=== PATIENT | male | born 1955 | race Two or more races ===

== ENCOUNTER 2018-01-11 17:31 | Emergency (ER) | payer OTHER ==
[2018-01-11 17:40] VITALS: BP 119/77; PULSE 61; TEMP 98.1; BMI 26.3
--- NOTE | 2018-01-11 17:54 | PDOC ---
History of Present Illness <Taylor Sullivan - Last Filed: 01/11/18 19:51> - General History Source: Patient - History of Present Illness Initial Comments: 01/11/18 17:54 The patient is a 62 year old Romansh speaking male with a PMH of HTN, Hypothyroidism, Prostate CA who presents to the ED c/o 2-3 week of abdominal pain. Pain is intermittent, 7/10, localized to his RUQ and has no relation to movement, breathing or eating. Denies any associated fevers/chills, nausea/ vomiting, diarrhea/constipation, dysuria, hematuria. Last BM was this morning and was normal. Patient notes he is scheduled for Prostate CA resection this coming week. NKDA Surgical: appendectomy Social: denies toxic habits PMD: Dr. Luci Carrillo M.D. <Donna Garcia - Last Filed: 01/11/18 23:46> - General Chief Complaint: Pain, Acute Stated Complaint: PAIN, ACUTE Time Seen by Provider: 01/11/18 17:44 Past History <Taylor Sullivan - Last Filed: 01/11/18 19:51> - Past Medical History Cancer: Yes (prostate) COPD: No HTN: Yes Thyroid Disease: Yes - Surgical History Appendectomy: Yes - Suicide/Smoking/Psychosocial Hx Smoking History: Never smoked <Donna Garcia - Last Filed: 01/11/18 23:46> - Past Medical History Allergies/Adverse Reactions: Allergies Allergy/AdvReac Type Severity Reaction Status Date / Time No Known Allergies Allergy Verified 01/11/18 17:37 Home Medications: Ambulatory Orders Valsartan [Diovan] 40 mg PO DAILY 05/04/17 Levothyroxine [Synthroid -] 100 mcg PO DAILY 01/11/18 Review of Systems - Review of Systems Constitutional: No: Chills, Fever HEENTM: No: Blurred Vision, Double Vision Respiratory: No: Cough, Shortness of Breath Cardiac (ROS): No: Chest Pain, Lightheadedness, Palpitations, Syncope ABD/GI: Yes: Abdominal cramping. No: Constipated, Diarrhea, Nausea, Vomiting <Donna Garcia - Last Filed: 01/11/18 23:46> *Physical Exam - Vital Signs Last Vital Signs Temp Pulse Resp BP Pulse Ox 98.1 F 61 18 119/77 98 11/03/18 17:38 01/11/18 17:38 01/11/18 17:38 01/11/18 17:38 01/11/18 17:38 <Taylor Sullivan - Last Filed: 01/11/18 19:51> - Vital Signs Last Vital Signs Temp Pulse Resp BP Pulse Ox 98.1 F 61 18 119/77 98 01/11/18 17:38 01/11/18 17:38 01/11/18 17:38 01/11/18 17:38 01/11/18 17:38 - Physical Exam General Appearance: Yes: Nourished, Appropriately Dressed HEENT: positive: Normal Voice, Hearing Grossly Normal Neck: positive: Trachea midline, Supple Respiratory/Chest: positive: Lungs Clear, Normal Breath Sounds Cardiovascular: positive: S1, S2 Vascular Pulses: Dorsalis-Pedis (R): 2+, Doralis-Pedis (L): 2+ Gastrointestinal/Abdominal: positive: Normal Bowel Sounds, Soft, Tenderness ( RLQ TTP). negative: Distended, Guarding, Rebound, Mass Male Genitalia: positive: inguinal hernia (R), other (R sided inguinal canal deficit) Musculoskeletal: negative: CVA Tenderness (R), CVA Tenderness (L) Extremity: positive: Normal Capillary Refill, Normal Inspection Integumentary: positive: Normal Color, Dry, Warm Neurologic: positive: monogram technician II-XII NML intact, Fully Oriented, Alert <Donna Garcia - Last Filed: 01/11/18 23:46> Heart Score/ECG Review - ECG Intrepretation Rhythm: Regular Rhythm - Delia Delia: Normal - P and VT Prominent R with upright T in V1 (true posterior CT): No Delta Wave(s) Present: No WPW: No - ST and T Early Repolarization: No Non Specific ST-T Wave changes: No Flattened T Waves: No Prolonged Q-T Interval: No - ECG Impressions Normal ECG: Yes Non-specific ST Elevation: No Ischemic Changes: No <Taylor Sullivan - Last Filed: 01/11/18 19:51> ED Treatment Course - LABORATORY CBC & Chemistry Diagram: 01/11/18 18:20 01/11/18 18:20 - ADDITIONAL ORDERS Additional order review: Laboratory Results 01/11/18 01/11/18 01/11/18 18:20 18:20 18:20 PT with INR INR PTT (Actin FS) Sodium 142 Potassium 4.0 Chloride 104 Carbon Dioxide 30 Anion Gap 8 BUN 14 Creatinine 0.9 Creat Clearance w eGFR > 60 Random Glucose 102 Calcium 8.4 L Total Bilirubin 0.8 AST 17 ALT 35 Alkaline Phosphatase 96 Total Protein 7.5 Albumin 3.7 Lipase 207 Blood Type O POSITIVE Antibody Screen Negative 01/11/18 18:20 PT with INR 11.60 INR 0.98 PTT (Actin FS) 30.5 Sodium Potassium Chloride Carbon Dioxide Anion Gap BUN Creatinine Creat Clearance w eGFR Random Glucose Calcium Total Bilirubin AST ALT Alkaline Phosphatase Total Protein Albumin Lipase Blood Type Antibody Screen 01/11/18 18:20 RBC 4.80 MCV 87.6 MCHC 35.7 RDW 13.6 MPV 8.9 Neutrophils % 47.6 Lymphocytes % 36.3 Monocytes % 6.2 Eosinophils % 9.6 H Basophils % 0.3 - Medications Given in the ED: ED Medications Discontinued Medications Generic Name Dose Route Start Last Admin Trade Name Freq PRN Reason Stop Dose Admin Al Hydroxide/Mg Hydroxide 30 ml 01/11/18 19:05 01/11/18 19:49 Mylanta Suspension - PO 01/11/18 19:06 1 bot ONCE ONE Administration Famotidine/Sodium Chloride 20 mg in 50 mls @ 100 mls/hr 01/11/18 19:06 19:49 Pepcid 20 Mg Premixed Ivpb - IVPB 01/11/18 19:35 100 mls/hr ONCE ONE Administration Morphine Sulfate 4 mg 01/11/18 18:26 01/11/18 19:12 Morphine Sulfate IVPUSH 01/11/18 18:27 4 mg ONCE ONE Administration Sodium Chloride 1,000 ml 01/11/18 18:00 01/11/18 18:24 Normal Saline - IV 01/11/18 18:01 1,000 ml ONCE ONE Administration <Taylor Sullivan - Last Filed: 01/11/18 19:51> - LABORATORY CBC & Chemistry Diagram: 01/11/18 18:20 01/11/18 18:20 <Donna Garcia - Last Filed: 01/11/18 23:46> Medical Decision Making - Medical Decision Making 01/11/18 18:26 62 year old male c/o 4 week h/o intermittent RUQ pain. Exquisitely tender on PE. Bedside U/S equivocal. Frontal diagnosis: biliary colic, esophageal spasm , r/o acute cholecystitis (less likely), choledocholithiasis, less likely cholangitis. Will give IV fluid, GI cocktail, GB ultrasound. Reassess. 01/11/18 19:31 Patient reassessed @ bedside. VS stable Symptomatically improved Wet read of GB ultrasound shows no cholelithiasis, no GB wall thickening 01/11/18 20:19 Formal U/S read shows contracted GB w/o cholelithiasis/cholecystitis. Patient' s last meal 01/11/18 21:49 U/S negative for choledocholithiasis, cholecystitis. As patient now c/o pain radiating to his back, will obtain CT scan to r/o renal stone. 01/11/18 23:19 CT negative for renal stone. Shows R inguinal hernia. Testicular exam shows R sided inguinal canal deficit. Will discharge patient home with copy of CT scan, PMD follow-up and return precautions. I discussed the physical exam findings, ancillary test results and final diagnoses with the patient. I answered all of the patient's questions. The patient was satisfied with the care received and felt comfortable with the discharge plan and treatment plan. The patient will return to the Emergency Department with any new, persistent or worsening symptoms. <Donna Garcia - Last Filed: 01/11/18 23:46> *DC/Admit/Observation/Transfer <LaurieTaylor - Last Filed: 01/11/18 19:51> <Donna Garcia - Last Filed: 01/11/18 23:46> Diagnosis at time of Disposition: Inguinal hernia, right - Discharge Dispostion Disposition: HOME Condition at time of disposition: Stable - Referrals Referrals: Tomasz Ramsey MD [Staff Physician] - Luci Byrne MD [Primary Care Provider] - - Patient Instructions Printed Discharge Instructions: Groin Hernia -- Adult Additional Instructions: You were evaluated today for abdominal pain. A CT scan of your abdomen showed a R sided inguinal hernia. At this time you are safe for discharge home. Please see Dr. Carrillo in the next 3 days, please take the copy of your cat scan with you. Please also make an appointment with a surgeon, Dr. Ramsey (contact information included) for evaluation. You may need elective surgery. Return to the Emergency Department for any new/worsening/concerning symptoms. Usted fue evaluado hoy para el dolor abdominal. Kassie tomografa computarizada de rainey abdomen mostr kassie hernia inguinal del lado derecho. En fay momento usted est seguro para el margo del hogar. Consulte al Dr. Carrillo en los prximos 3 iwtt, lleve la copia de rainey escner de parag con usted. Por favor tambin pb kassie jose con un cirujano, el Dr. Ramsey (informacin de contacto incluida) para la evaluacin. Es posible que necesite ciruga electiva. Regrese al Departamento de Emergencias para cualquier sntoma nuevo / que empeora / relacionado. Print Language: JORDANIAN - Post Discharge Activity Forms/Work/School Notes: Back to Work
[2018-01-11] MEDS ORDERED: SODIUM CHLORIDE 0.9% 500 ML INFUS.BAG IV ONE (18:00)
[2018-01-11] MEDS ORDERED: morphine SULFATE 4 MG/ML VIAL IVPUSH ONE (18:26)
[2018-01-11 18:32] LABS: BASO % 0.3 % (0-2.0); EOS % 9.6 % (0-4.5); HEMATOCRIT 42.1 % (35.4-49); LYMPH % 36.3 % (8-40); MCH 31.3 pg (25.7-33.7); MCHC 35.7 g/dl (32.0-35.9); MEAN CELL VOLUME 87.6 fl (80-96); MEAN PLT VOLUME 8.9 fl (7.5-11.1); MONO % 6.2 % (3.8-10.2); NEUT % 47.6 % (42.8-82.8); PLATELET COUNT 212 K/MM3 (134-434); RDW 13.6 % (11.9-15.9); WHITE BLOOD COUNT 6.9 K/mm3 (4.0-10.0)
[2018-01-11 18:46] LABS: INR 0.98 (0.83-1.09); PROTHROMBIN TIME (PATIENT) 11.6 SEC (9.7-13.0)
[2018-01-11 18:49] LABS: ACTIVATED PTT 30.5 SECONDS (25.2-36.5)
[2018-01-11] MEDS ORDERED: MAG HYDROX/AL HYDROX/SIMETH -MYLANTA- ORAL SUSPENSION PO ONE (19:05)
[2018-01-11 19:06] LABS: ALBUMIN 3.7 g/dl (3.4-5.0); ALK PHOS 96 U/L (45-117); ANION GAP 8 MMOL/L (8-16); BILIRUBIN,TOTAL 0.8 mg/dL (0.2-1); BLOOD UREA NITROGEN 14 mg/dL (7-18); CALCIUM 8.4 mg/dL (8.5-10.1); CHLORIDE 104 mmol/L (98-107); CO2 30 mmol/L (21-32); CREATININE 0.9 mg/dL (0.55-1.3); GLUCOSE,RANDOM 102 mg/dL (74-106); SGOT/AST 17 U/L (15-37); SGPT/ALT 35 U/L (13-61); SODIUM 142 mmol/L (136-145); TOT PROT 7.5 g/dl (6.4-8.2)
[2018-01-11] MEDS ORDERED: FAMOTIDINE 20 MG/50 ML IVPB 20 MG/50 ML MG IVPB ONE ×2 (19:06→19:23)
[2018-01-11] MEDS ORDERED: morphine SULFATE 4 MG/ML VIAL ONE (19:08)
--- NOTE | 2018-01-11 19:44 | PDOC ---
Attending Attestation - Resident Resident Name: Braden Garciaica - ED Attending Attestation I have performed the following: I have examined & evaluated the patient, The case was reviewed & discussed with the resident, I agree w/resident's findings & plan - HPI HPI: 01/11/18 19:40 62 year old Georgian speaking male with a PMH of HTN, Hypothyroidism, Prostate CA who presents to the ED c/o 2-3 week of abdominal pain, worse with eating, normal BM and flatus. no urinary sx, no f/c. - Physicial Exam PE: 01/11/18 19:41 NAD, well appearing, PERRL, EOMI, MMM, nl conjunctiva, anicteric; neck supple. lungs clear, RRR, abdomen soft +epigastric ttp, no CVAT. BIANCHI x4, no focal neuro deficits. No peripheral edema. normal color for ethnicity, WWP. - Medical Decision Making 01/11/18 19:42 62 YOM with AP x 2-3 weeks, with food; no systemic sx. DDx abdominal pain: Renal colic, biliary colic, metabolic/electrolyte derangements. GERD, PUD, esophageal spasm, pancreatitis, hepatitis, constipation , colitis, gastroenteritis, cholecystitis, UTI, pyelonephritis, ileus, SBO, medication side effect, hernia vitals wnl, no fever given analgesia and GI cocktail labs and lytes wnl. lipase and LFTs normal as well. doubt obstruction. post appendectomy so not appy. also no CVAT, so doubt renal colic. or stone. bedside biliary sono limited due to contracted GB, no FF in RUQ s/o pending offical RUQ sono, reeval and likely DC with GI followup and PMD. 01/11/18 19:43
[2018-01-11 20:38] LABS: URINE APPEARANCE CLEAR; URINE BILIRUBIN NEGATIVE (<2.0 mg/dL); URINE COLOR COLORLESS; URINE GLUCOSE (UA) NEGATIVE (NEGATIVE); URINE KETONE NEGATIVE (NEGATIVE); URINE LEUK ESTERASE NEGATIVE (NEGATIVE); URINE NITRITE NEGATIVE (NEGATIVE); URINE PROTEIN NEGATIVE (NEGATIVE); URINE UROBILINOGEN NEGATIVE mg/dL (0.2-1.0)
--- NOTE | 2018-01-11 20:58 | PDOC ---
*Physical Exam - Vital Signs Last Vital Signs Temp Pulse Resp BP Pulse Ox 98.1 F 61 18 119/77 98 01/11/18 17:38 01/11/18 17:38 01/11/18 17:38 01/11/18 17:38 01/11/18 17:38 ED Treatment Course - LABORATORY CBC & Chemistry Diagram: 01/11/18 18:20 01/11/18 18:20 - ADDITIONAL ORDERS Additional order review: Laboratory Results 01/11/18 01/11/18 01/11/18 20:15 18:20 18:20 PT with INR INR PTT (Actin FS) Sodium Potassium Chloride Carbon Dioxide Anion Gap BUN Creatinine Creat Clearance w eGFR Random Glucose Calcium Total Bilirubin AST ALT Alkaline Phosphatase Total Protein Albumin Lipase 207 Urine Color Colorless Urine Appearance Clear Urine pH 7.0 D Ur Specific [place] 1.006 L Urine Protein Negative Urine Glucose (UA) Negative Urine Ketones Negative Urine Blood Negative Urine Nitrite Negative Urine Bilirubin Negative Urine Urobilinogen Negative Ur Leukocyte Esterase Negative Blood Type O POSITIVE Antibody Screen Negative 01/11/18 01/11/18 18:20 18:20 PT with INR 11.60 INR 0.98 PTT (Actin FS) 30.5 Sodium 142 Potassium 4.0 Chloride 104 Carbon Dioxide 30 Anion Gap 8 BUN 14 Creatinine 0.9 Creat Clearance w eGFR > 60 Random Glucose 102 Calcium 8.4 L Total Bilirubin 0.8 AST 17 ALT 35 Alkaline Phosphatase 96 Total Protein 7.5 Albumin 3.7 Lipase Urine Color Urine Appearance Urine pH Ur Specific [place] Urine Protein Urine Glucose (UA) Urine Ketones Urine Blood Urine Nitrite Urine Bilirubin Urine Urobilinogen Ur Leukocyte Esterase Blood Type Antibody Screen 01/11/18 18:20 RBC 4.80 MCV 87.6 MCHC 35.7 RDW 13.6 MPV 8.9 Neutrophils % 47.6 Lymphocytes % 36.3 Monocytes % 6.2 Eosinophils % 9.6 H Basophils % 0.3 - RADIOLOGY Radiology Studies Ordered: Category Date Time Status SPIRAL- RENAL-STONE CT [CT] Stat CT Scan 01/11/18 20:50 Ordered - Medications Given in the ED: ED Medications Discontinued Medications Generic Name Dose Route Start Last Admin Trade Name Freq PRN Reason Stop Dose Admin Al Hydroxide/Mg Hydroxide 30 ml 01/11/18 19:05 01/11/18 19:49 Mylanta Suspension - PO 01/11/18 19:06 1 bot ONCE ONE Administration Famotidine/Sodium Chloride 20 mg in 50 mls @ 100 mls/hr 01/11/18 19:06 19:49 Pepcid 20 Mg Premixed Ivpb - IVPB 01/11/18 19:35 100 mls/hr ONCE ONE Administration Morphine Sulfate 4 mg 01/11/18 18:26 01/11/18 19:12 Morphine Sulfate IVPUSH 01/11/18 18:27 4 mg ONCE ONE Administration Sodium Chloride 1,000 ml 01/11/18 18:00 01/11/18 18:24 Normal Saline - IV 01/11/18 18:01 1,000 ml ONCE ONE Administration Medical Decision Making - Medical Decision Making 01/11/18 20:54 I received signout on patient. He is complaining of right sided flank pain radiating to his RLQx 1-3 weeks on and off. He has no dysuria and he has no hematuria and no known family disorder of kidney stones. Pt has normal labs; we added on a UA which is normal. Exam now I am unable to elicit the flank or side pain, but pt keeps pointing to the side and the flank and he states that when the pain comes on it is very intense. He works in a [employer] and does very heavy lifting. He may have a hernia, but he denies any testicular pain or swelling or hernia there. I will check an inguinal exam. 01/11/18 23:16 Patient Name: BRITTANIE SALDANA THIS IS A PRELIMINARY REPORT FROM IMAGING DEVELOPMENT EDUCATOR EXAM: CT abdomen and pelvis without contrast IMAGES:[id number] DATE OF EXAM: 2018-01-11 21:44:23 REASON FOR EXAM: Rule out right renal stone COMPARISON: None Findings: Atelectasis and scarring in lung bases. No pleural effusions. Mild asymmetric hepatic steatosis. The gallbladder, pancreas, adrenal glands, and spleen are grossly unremarkable. Mild bilateral perinephric edema and renal cortical scarring. No renal or urinary calculi. No hydronephrosis. No AAA. Moderate gas and stool in the colon. No evidence for diverticulitis, small bowel obstruction, free fluid, or free air. Appendix not seen with certainty. Small right inguinal hernia containing fat. No acute findings. One or more of the following dose reduction techniques were used: automated exposure control, adjustment of the mA and/or kV according to patient size, use of iterative reconstructive technique. THIS DOCUMENT HAS BEEN ELECTRONICALLY SIGNED 01/12/18 05:56 Right inguinal canal deficit. Pt will require hernia mesh repair on an elective outpatient basis. Pt asked to follow with gen surg and avoid heavy lifting. *DC/Admit/Observation/Transfer Diagnosis at time of Disposition: Inguinal hernia, right - Discharge Dispostion Disposition: HOME Condition at time of disposition: Stable Decision to Admit order: No - Referrals Referrals: Luci Byrne MD [Primary Care Provider] - Tomasz Ramsey MD [Staff Physician] - - Patient Instructions Printed Discharge Instructions: Groin Hernia -- Adult Additional Instructions: You were evaluated today for abdominal pain. A CT scan of your abdomen showed a R sided inguinal hernia. At this time you are safe for discharge home. Please see Dr. Carrillo in the next 3 days, please take the copy of your cat scan with you. Please also make an appointment with a surgeon, Dr. Ramsey (contact information included) for evaluation. You may need elective surgery. Return to the Emergency Department for any new/worsening/concerning symptoms. Usted fue evaluado hoy para el dolor abdominal. Walker tomografa computarizada de rainey abdomen mostr walker hernia inguinal del lado derecho. En fay momento usted est seguro para el margo del hogar. Consulte al Dr. Carrillo en los prximos 3 witt, lleve la copia de rainey escner de parag con usted. Por favor tambin pb walker jose con un cirujano, el Dr. Ramsey (informacin de contacto incluida) para la evaluacin. Es posible que necesite ciruga electiva. Regrese al Departamento de Emergencias para cualquier sntoma nuevo / que empeora / relacionado. Print Language: [place] - Post Discharge Activity Forms/Work/School Notes: Back to Work
--- NOTE | 2018-01-12 11:42 | EKG ---
Test Reason : Blood Pressure : / mmHG Vent. Rate : 056 BPM Atrial Rate : 056 BPM P-R Int : 150 ms QRS Dur : 080 ms QT Int : 428 ms P-R-T Axes : 054 047 041 degrees QTc Int : 413 ms SINUS BRADYCARDIA OTHERWISE NORMAL ECG NO PREVIOUS ECGS AVAILABLE Confirmed by ANTON EWING MD ([id number]) on 01/12/2018 11:42:49 AM Referred By: Confirmed By:ANTON EWING MD
== END 2018-01-11 23:39 | disposition home or self-care (01) ==
LOC: JER 17:31
PROC: 3E033GC Introduction of Other Therapeutic Substance into Peripheral Vein, Percutaneous Approach (ICD-10-PCS; principal; 2018-01-11)
PROC: 3E033NZ Introduction of Analgesics, Hypnotics, Sedatives into Peripheral Vein, Percutaneous Approach (ICD-10-PCS; 2018-01-11)
DX: K40.90 Unilateral inguinal hernia, without obstruction or gangrene, not specified as recurrent (principal); I10 Essential (primary) hypertension; E03.9 Hypothyroidism, unspecified; Z85.46 Personal history of malignant neoplasm of prostate
CPT/HCPCS: 36415; 71045-TC-FY; 74176; 76705-TC; 80053; 81003; 83690; 85025; 85610; 85730; 86850; 86900; 86901; 93005; 93010; 96365; 96375; 99282-25

== ENCOUNTER 2018-05-31 18:07 | Emergency (ER) | payer OTHER ==
[2018-05-31 18:20] VITALS: BMI 26.3
--- NOTE | 2018-05-31 19:19 | PDOC ---
History of Present Illness - General Chief Complaint: Headache Stated Complaint: HEADACHE/ABD PAIN Time Seen by Provider: 05/31/18 18:51 History Source: Patient - History of Present Illness Initial Comments: 05/31/18 19:14 Patient is a 62 y/o male with HTN, hypothyroidism, and prostate cancer who presents with headache and nausea. Patient had surgery four days ago on his left shoulder. Yesterday he had a little headache but today around 3 pm he had the same headache but much stronger. He has been prescribed Oxycodone 5 from the surgery but it did not relieve the pain. he also took a motrin which also did not help. Today he also felt nauseous and had one episode of vomiting every day. He also has been feeling a little short of breath today. These symptoms are all new to him, and states he has not had them in the past. he has not eaten any different food, and no one is sick in the house. He had surgery 3 months ago for his prostate cancer but states he is not receiving chemo or any treatment for it. No other complaints. Past History - Past Medical History Allergies/Adverse Reactions: Allergies Allergy/AdvReac Type Severity Reaction Status Date / Time No Known Allergies Allergy Verified 05/31/18 18:10 Home Medications: Ambulatory Orders Valsartan [Diovan] 40 mg PO DAILY 05/04/17 Levothyroxine [Synthroid -] 100 mcg PO DAILY 01/11/18 Meclizine HCl 25 mg PO BID PRN #30 tablet 05/31/18 Cancer: Yes (prostate) COPD: No HTN: Yes Thyroid Disease: Yes - Surgical History Appendectomy: Yes - Immunization History Immunization Up to Date: Yes - Suicide/Smoking/Psychosocial Hx Smoking History: Never smoked Information on smoking cessation initiated: No Hx Alcohol Use: No Drug/Substance Use Hx: No Review of Systems - Review of Systems Constitutional: No: Chills, Fever Respiratory: Yes: Shortness of Breath. No: Cough Cardiac (ROS): No: Chest Pain, Palpitations ABD/GI: Yes: Nausea, Vomiting. No: Constipated, Diarrhea *Physical Exam - Vital Signs Last Vital Signs Temp Pulse Resp BP Pulse Ox 98.2 F 68 16 146/92 96 05/31/18 18:11 05/31/18 18:11 05/31/18 18:11 05/31/18 18:11 05/31/18 18:11 Moderate Sedation - Procedure Monitoring Vital Signs: Procedure Monitoring Vital Signs Temperature 98.2 F 05/31/18 18:11 Pulse Rate 68 05/31/18 18:11 Respiratory Rate 16 05/31/18 18:11 Blood Pressure 146/92 05/31/18 18:11 O2 Sat by Pulse Oximetry (%) 96 05/31/18 18:11 ED Treatment Course - LABORATORY CBC & Chemistry Diagram: 05/31/18 19:43 05/31/18 19:43 - RADIOLOGY Radiology Studies Ordered: Category Date Time Status CHEST X-RAY PORTABLE* [RAD] Stat Radiology 05/31/18 19:09 Ordered Medical Decision Making - Medical Decision Making 05/31/18 23:[address]: no acute pathology, EKG without any abnormalities, CXR: no acute pathology Labs WNL symptoms resolved with medication Discussed use of meclazine as an outpatient *DC/Admit/Observation/Transfer Diagnosis at time of Disposition: Vertigo - Discharge Dispostion Disposition: HOME Condition at time of disposition: Good - Prescriptions Prescriptions: Meclizine HCl 25 mg PO BID PRN #30 tablet PRN Reason: Headache - Referrals Referrals: Luci Byrne MD [Primary Care Provider] - - Patient Instructions Printed Discharge Instructions: Vertigo Additional Instructions: You came to the hospital for dizziness and headache. We treated you with medication and your symptoms resolved. We took imaging of your head (CT scan) and imaging of your chest (Xray)and they did not show any abnormalities. For continued treatment of your vertigo please take: Meclizine 25 mg by mouth twice a day as needed Please continue your home medications as prescribed. Please make an appointment to follow up with your primary care physician within one week. Return to the Emergency Department if you experience chest pain, shortness of breath, vomiting, or diarrhea. - Post Discharge Activity
[2018-05-31 19:54] LABS: HEMOGLOBIN 16.2 GM/dL (11.7-16.9); MCH 30.9 pg (25.7-33.7); MCHC 35.2 g/dl (32.0-35.9); MEAN CELL VOLUME 87.6 fl (80-96); MEAN PLT VOLUME 8.8 fl (7.5-11.1); PLATELET COUNT 229 K/MM3 (134-434); RBC 5.25 M/mm3 (4.00-5.60); RDW 14.5 % (11.9-15.9); WHITE BLOOD COUNT 9.2 K/mm3 (4.0-10.0)
[2018-05-31 20:14] LABS: ALK PHOS 96 U/L (45-117); ANION GAP 8 MMOL/L (8-16); BILIRUBIN,TOTAL 0.7 mg/dL (0.2-1); BLOOD UREA NITROGEN 12 mg/dL (7-18); CALCIUM 8.5 mg/dL (8.5-10.1); CHLORIDE 100 mmol/L (98-107); CO2 30 mmol/L (21-32); CREATININE 0.9 mg/dL (0.55-1.3); GLUCOSE,RANDOM 124 mg/dL (74-106); POTASSIUM 4.3 mmol/L (3.5-5.1); SGOT/AST 18 U/L (15-37); SGPT/ALT 38 U/L (13-61); SODIUM 138 mmol/L (136-145); TOT PROT 8.3 g/dl (6.4-8.2)
[2018-05-31] MEDS ORDERED: SODIUM CHLORIDE 1,000 ML IV STA (20:18)
[2018-05-31] MEDS ORDERED: METOCLOPRAMIDE HCL INJECTION 10 MG/2 ML VIAL IVPB ONE (20:19)
[2018-05-31] MEDS ORDERED: ACETAMINOPHEN 1000 MG/100 ML VIAL (NON FORMULARY) IVPB ONE (20:19)
[2018-05-31] MEDS ORDERED: METOCLOPRAMIDE HCL INJECTION 10 MG/2 ML VIAL ONE (20:30)
[2018-05-31] MEDS ORDERED: ACETAMINOPHEN INJECTION 100 ML IVPB ONE (20:31)
[2018-05-31 21:24] VITALS: BP 102/62; PULSE 56; TEMP 97.7
[2018-05-31] MEDS ORDERED: MECLIZINE HCL 25 MG TABLET (FP) PO ONE (21:38)
--- NOTE | 2018-05-31 22:51 | PDOC ---
Attending Attestation - Resident Resident Name: Luci Seaman - ED Attending Attestation I have performed the following: I have examined & evaluated the patient, The case was reviewed & discussed with the resident, I agree w/resident's findings & plan, Exceptions are as noted - HPI HPI: 06/01/18 01:13 The patient is a 62 year old male with a past medical history of HTN, vertigo, prostate cancer (surgery 3 months ago), hypothyroidism, and left shoulder surgery (05/28/18) here today for evaluation of headache, room spinning dizziness , nausea, and vomiting. The patient reports that his headache began gradually on 05/30/18, has been getting gradually worse, rates it as a 7/10, and localized to the temples. He also reports associated nausea, dizziness described as the room spinning, and one episode of vomiting which happened after his headache started. Reports it feels like his previous vertigo. He notes taking motrin with no relief. Patient reported some SOB earlier today for a few minutes which has since resolved w/o intervention. No associated CP. Patient denies lightheadedness, focal weakness/numbness. Denies fever, chills. Denies diarrhea, abdominal pain. Allergies: NKA PCP: Luci Byrne - Physicial Exam PE: 06/01/18 01:20 GENERAL: Awake, alert, and fully oriented, in no acute distress. Walking to bathroom with steady gait. HEAD: No signs of trauma EYES: PERRLA, EOMI, sclera anicteric, conjunctiva clear. No nystagmus ENT: Auricles normal inspection, hearing grossly normal, nares patent, oropharynx clear without exudates. Moist mucosa NECK: Normal ROM, supple, no lymphadenopathy, JVD, or masses LUNGS: Breath sounds equal, clear to auscultation bilaterally. No wheezes, and no crackles HEART: Regular rate and rhythm, normal S1 and S2, no murmurs, rubs or gallops ABDOMEN: Soft, nontender, normoactive bowel sounds. No guarding, no rebound. No masses EXTREMITIES: Normal range of motion, no edema. No cords, erythema, or tenderness NEUROLOGICAL: Normal speech, cranial nerves intact, 5/5 strength in all 4 extremities, normal sensation to light touch in all 4 extremities, normal cerebellar exam, normal gait, normal tone SKIN: Warm, Dry, normal turgor, no rashes or lesions noted. - Medical Decision Making 06/01/18 01:29 62yo M hx vertigo presents to the ED with room spinning dizziness, headache, N/V , completely resolved with meclizine, reglan, fluids, and tylenol. Labs, CTH neg In light of transient SOB earlier today, EKG/trop were checked which were neg Low likelihood PE, recent surgery was ambulatory with no ON stay, vitals normal and pt with no more symptoms. CVA unlikely in light of hx similar sxs, resolution with meclizine, no neuro deficits. Pt clinically stable, requests DC home. Return precautions provided I discussed the physical exam findings, ancillary test results and final diagnoses with the patient. I answered all of the patient's questions. The patient was satisfied with the care received and felt comfortable with the discharge plan and treatment plan. The patient will call their primary care physician within 24 hours to arrange follow-up and will return to the Emergency Department with any new, persistent or worsening symptoms.
--- NOTE | 2018-06-01 23:50 | EKG ---
Test Reason : Blood Pressure : / mmHG Vent. Rate : 058 BPM Atrial Rate : 058 BPM P-R Int : 146 ms QRS Dur : 080 ms QT Int : 416 ms P-R-T Axes : 052 040 047 degrees QTc Int : 408 ms SINUS BRADYCARDIA OTHERWISE NORMAL ECG WHEN COMPARED WITH ECG OF 11-JAN-2018 19:38, NO SIGNIFICANT CHANGE WAS FOUND Confirmed by BLANCA SANDOVAL MD ([id number]) on 06/01/2018 11:50:06 PM Referred By: Confirmed By:BLANCA SANDOVAL MD
== END 2018-06-01 00:06 | disposition home or self-care (01) ==
LOC: JER 18:07
PROC: 3E0337Z Introduction of Electrolytic and Water Balance Substance into Peripheral Vein, Percutaneous Approach (ICD-10-PCS; principal; 2018-05-31)
PROC: 3E033GC Introduction of Other Therapeutic Substance into Peripheral Vein, Percutaneous Approach (ICD-10-PCS; 2018-05-31)
PROC: 3E033NZ Introduction of Analgesics, Hypnotics, Sedatives into Peripheral Vein, Percutaneous Approach (ICD-10-PCS; 2018-05-31)
DX: R42 Dizziness and giddiness (principal); I10 Essential (primary) hypertension; E03.9 Hypothyroidism, unspecified; Z85.46 Personal history of malignant neoplasm of prostate; Z98.890 Other specified postprocedural states
CPT/HCPCS: 36415; 70450-TC; 71045-TC-FY; 80053; 84484; 85027; 93005; 93010; 96361; 96374; 96375; 99282-25; J0131; J7030

== ENCOUNTER 2018-09-15 11:03 | Emergency (ER) | payer OTHER ==
[2018-09-15 11:10] VITALS: BP 145/85; PULSE 65; TEMP 98.4; BMI 26.3
--- NOTE | 2018-09-15 12:02 | PDOC ---
History of Present Illness - General Chief Complaint: Edema Stated Complaint: SWOLLEN LIPS/ NUMBNESS Time Seen by Provider: 09/15/18 11:17 History Source: Patient Exam Limitations: No Limitations - History of Present Illness Initial Comments: 09/15/18 11:30 63-year-old male presents to ED with continual lip swelling over the past month. Patient was seen by his primary care physician and [place] few weeks ago placed him on topical antifungals and a mouthwash but states symptoms continue. Patient states now has noted some swelling to his lower jaw line but denies fever, chills, difficulty swallowing, history of diabetes, or immunosuppression. Timing/Duration: constant Severity: mild Associated Symptoms: reports: denies symptoms Past History - Travel Traveled outside of the country in the last 30 days: Yes Close contact w/someone who was outside of country & ill: No - Past Medical History Allergies/Adverse Reactions: Allergies Allergy/AdvReac Type Severity Reaction Status Date / Time Anesthetics - Amide Type Allergy Verified 09/15/18 11:10 Anesthetics - Roxy Type- Allergy Verified 09/15/18 11:10 Parabens Home Medications: Ambulatory Orders Valsartan [Diovan] 40 mg PO DAILY 05/04/17 Levothyroxine [Synthroid -] 100 mcg PO DAILY 01/11/18 Meclizine HCl 25 mg PO BID PRN #30 tablet 05/31/18 Clindamycin [Cleocin -] 300 mg PO TID #21 capsule 09/15/18 Cancer: Yes (prostate) COPD: No HTN: Yes Thyroid Disease: Yes - Surgical History Appendectomy: Yes - Immunization History Immunization Up to Date: Yes - Suicide/Smoking/Psychosocial Hx Smoking History: Never smoked Information on smoking cessation initiated: No Hx Alcohol Use: No Drug/Substance Use Hx: No Patient Lives Alone: No Lives with/in: spouse/SO Review of Systems - Review of Systems Able to Perform ROS?: Yes Constitutional: No: Symptoms Reported HEENTM: Yes: Mouth Pain Respiratory: No: Symptoms reported Cardiac (ROS): No: Symptoms Reported ABD/GI: No: Symptoms Reported Musculoskeletal: No: Symptoms Reported Integumentary: Yes: Other Neurological: No: Symptoms reported Hematologic/Lymphatic: No: Symptoms Reported *Physical Exam - Vital Signs Last Vital Signs Temp Pulse Resp BP Pulse Ox 98.4 F 65 18 145/85 98 09/15/18 11:07 07/08/19 11:07 09/15/18 11:07 09/15/18 11:07 09/15/18 11:07 - Physical Exam General Appearance: Yes: Nourished, Appropriately Dressed. No: Apparent Distress HEENT: positive: Normal Voice, Pharynx Normal (no lesions or sores noted). negative: Pharyngeal Erythema, Tonsillar Erythema Neck: positive: Lymphadenopathy (R) (right submandibular). negative: Lymphadenopathy (L) Integumentary: positive: Other (noted cracked slightly edematous upper and lower lips. ) Neurologic: positive: Motor Strength 5/5 (ambulatory) ED Treatment Course - LABORATORY CBC & Chemistry Diagram: 09/15/18 12:11 09/15/18 12:11 - RADIOLOGY Radiology Studies Ordered: Category Date Time Status SOFT TISSUE NECK CT WITH CONTR [CT] Stat CT Scan 09/15/18 11:33 Ordered Medical Decision Making - Medical Decision Making 09/15/18 11:11 Complaint: Continual lip swelling/ cracked lips, and discomfort Despite taking topicals and mouthwash as prescribed by his physician [place] 3 weeks ago. Exam: Noted slightly edematous and fissured lips with palpable right submandibular gland Plan: Labs, IV and CT of the soft tissue neck with contrast 09/15/18 16:16 Laboratory Tests 09/15/18 09/15/18 12:11 12:11 WBC 5.2 Hgb 14.9 Hct 43.5 Neutrophils % 44.0 Eosinophils % 11.4 H Sodium 142 Potassium 4.3 Carbon Dioxide 32 Anion Gap 3 L BUN 12.2 Creatinine 1.0 Est GFR (CKD-EPI)AfAm 91.13 Est GFR (CKD-EPI)NonAf 78.63 Random Glucose 129 H Calcium 8.7 Total Bilirubin 0.5 AST 17 ALT 41 Alkaline Phosphatase 89 Total Protein 7.7 Albumin 3.9 Pt unable to wait for CT reading. Will call for report and dc home with augmentin. 09/15/18 17:02 CT Of the soft tissue shows mild soft tissue swelling along the right anterior margin of the mandible without gross evidence of collection abscess or abnormal enhancement. Subcentimeter bilateral submandibular, submental and bilateral lateral neck lymph nodes which are nonspecific. Patient was discharged home with antibiotics *DC/Admit/Observation/Transfer Diagnosis at time of Disposition: Cellulitis, lip - Discharge Dispostion Disposition: HOME Condition at time of disposition: Good - Prescriptions Prescriptions: Amoxicillin/Potassium Clav [Augmentin 875-125 Tablet] 1 each PO BID #14 tablet - Referrals Referrals: Luci Byrne MD [Primary Care Provider] - - Patient Instructions Printed Discharge Instructions: DI for Cellulitis -- Adult Additional Instructions: Please take antibiotics as prescribed. I will call you with the results. Return to the ED if s/s worsen - Post Discharge Activity
[2018-09-15 12:41] LABS: BASO % 0.4 % (0-2.0); EOS % 11.4 % (0-4.5); HEMATOCRIT 43.5 % (35.4-49); HEMOGLOBIN 14.9 GM/dL (11.7-16.9); LYMPH % 36.8 % (8-40); MCH 30.3 pg (25.7-33.7); MCHC 34.2 g/dl (32.0-35.9); MEAN CELL VOLUME 88.8 fl (80-96); MEAN PLT VOLUME 8.9 fl (7.5-11.1); MONO % 7.4 % (3.8-10.2); PLATELET COUNT 201 K/MM3 (134-434); RDW 13.8 % (11.9-15.9); WHITE BLOOD COUNT 5.2 K/mm3 (4.0-10.0)
[2018-09-15 13:14] LABS: ALBUMIN 3.9 g/dl (3.4-5.0); BILIRUBIN,TOTAL 0.5 mg/dL (0.2-1); BLOOD UREA NITROGEN 12.2 mg/dL (7-18); CALCIUM 8.7 mg/dL (8.5-10.1); POTASSIUM 4.3 mmol/L (3.5-5.1); TOT PROT 7.7 g/dl (6.4-8.2)
== END 2018-09-15 16:33 | disposition home or self-care (01) ==
LOC: JER 11:03
DX: K13.0 Diseases of lips (principal)
CPT/HCPCS: 36415; 70491-TC; 80053; 85025; 99283-25

== ENCOUNTER 2018-10-27 10:51 | Emergency (ER) | payer OTHER ==
[2018-10-27 11:03] VITALS: BP 113/82; PULSE 62; TEMP 97.8; BMI 28.2
--- NOTE | 2018-10-27 11:47 | PDOC ---
History of Present Illness - General Chief Complaint: Weakness Stated Complaint: Blood Pressure Problem Time Seen by Provider: 10/27/18 11:46 History Source: Patient, Family Exam Limitations: No Limitations - History of Present Illness Initial Comments: 63 year old male with PMH NIDDM, HTN, vertigo, prostate cancer (s/p resection x1 year ago) presented to ED for generalized weakness since yesterday. Pt admitted to productive white cough. Pt denied headache, abdominal pain, chest pain, shortness of breath, nausea, vomiting, diarrhea, constipation, urinary retention, dysuria. Pt reported he took his blood pressure this AM saw it was 101/62, and felt that he should be evaluated by a doctor, prompting him to come to the ED. Pt reported he did not take any of his home medications this AM because "I figured I was coming to the hospital." Past History - Past Medical History Allergies/Adverse Reactions: Allergies Allergy/AdvReac Type Severity Reaction Status Date / Time Anesthetics - Amide Type Allergy Verified 10/27/18 10:59 Anesthetics - Roxy Type- Allergy Verified 10/27/18 10:59 Parabens Home Medications: Ambulatory Orders Valsartan [Diovan] 40 mg PO DAILY 05/04/17 Levothyroxine [Synthroid -] 100 mcg PO DAILY 01/11/18 Meclizine HCl 25 mg PO BID PRN #30 tablet 05/31/18 Clindamycin [Cleocin -] 300 mg PO TID #21 capsule 09/15/18 Cancer: Yes (prostate) COPD: No HTN: Yes Thyroid Disease: Yes - Surgical History Appendectomy: Yes - Immunization History Immunization Up to Date: Yes - Suicide/Smoking/Psychosocial Hx Smoking History: Never smoked Hx Alcohol Use: No Drug/Substance Use Hx: No Review of Systems - Review of Systems Able to Perform ROS?: Yes Comments:: General: admitted to generalized weakness, body aches. denied fever, chills. HEENT: denied sore throat, rhinorrhea, ear pain. Cardiovascular: denied chest pain, palpitations, syncope, diaphoresis. Respiratory: admitted to cough, sputum production. denied shortness of breath, hemoptysis. Gastrointestinal: denied abdominal pain, nausea, vomiting, diarrhea, constipation, blood in stool. Genitourinary: denied dysuria, increased urinary frequency, hematuria, urinary incontinence, flank pain. Back: denied back pain. Musculoskeletal: denied joint pain, muscle pain, joint swelling. Neurological: denied headache, dizziness, numbness, tingling, weakness. Integumentary: denied rash, laceration, abrasion. Hematologic/Lymphatic: denied bruising or bleeding. *Physical Exam - Vital Signs Last Vital Signs Temp Pulse Resp BP Pulse Ox 97.8 F 62 16 113/82 96 10/27/18 11:00 10/27/18 11:00 10/27/18 11:00 10/27/18 11:00 10/27/18 11:00 - Physical Exam Comments: Constitutional: Well-nourished, Well-developed, appearing stated age. ambulated well unassisted. HEENT: head is normocephalic, atraumatic. EOMI. PERRLA. no nystagmus. Neck: supple. Full ROM. Cardiovascular: regular heart rhythm. no murmurs. no pericardial friction rub. Respiratory: clear to auscultation bilaterally. no crackles, rhonchi or wheezing. no stridor. Gastrointestinal: soft, nontender. normal bowel sounds. no rebound, guarding, masses. Extremities: peripheral pulses intact. no lower extremity edema. Neurological: CN 2-12 grossly intact. moves all four extremities. 5/5 strength all extremities. Full and equal sensation bilaterally. no ataxia. gait normal. Psych: awake, alert, oriented x3. follows commands. answers questions appropriately. ED Treatment Course - LABORATORY CBC & Chemistry Diagram: 10/27/18 12:32 10/27/18 12:32 Medical Decision Making - Medical Decision Making 63 year old male with above PMH presented to ED for generalized weakness and dizziness. Initial Vital Signs Temp Pulse Resp BP Pulse Ox 97.8 F 62 16 113/82 96 10/27/18 11:00 10/27/18 11:00 10/27/18 11:00 10/27/18 11:00 10/27/18 11:00 Afebrile. No tachycardia. No tachypnea. No hypotension. No hypoxia on room air. Labs ordered: CBC, CMP, troponin, mag, BGM, troponin, UA/UC Imaging ordered: CXR Medications ordered: tylenol 975 mg PO once, normal saline bolus 1000 cc once EKG performed at 10/27/18 14:40 CBC WBC 6.1 K/mm3 (4.0-10.0) 10/27/18 12:32 RBC 4.69 M/mm3 (4.00-5.60) 10/27/18 12:32 Hgb 14.4 GM/dL (11.7-16.9) 10/27/18 12:32 Hct 41.3 % (35.4-49) 10/27/18 12:32 MCV 88.1 fl (80-96) 10/27/18 12:32 MCH 30.7 pg (25.7-33.7) 10/27/18 12:32 MCHC 34.8 g/dl (32.0-35.9) 10/27/18 12:32 RDW 14.0 % (11.9-15.9) 10/27/18 12:32 Plt Count 203 K/MM3 (134-434) 10/27/18 12:32 MPV 8.3 fl (7.5-11.1) 10/27/18 12:32 Absolute Neuts (auto) 2.9 K/mm3 (1.5-8.0) 10/27/18 12:32 Neutrophils % 47.4 % (42.8-82.8) 10/27/18 12:32 Lymphocytes % 37.0 % (8-40) 10/27/18 12:32 Monocytes % 6.4 % (3.8-10.2) 10/27/18 12:32 Eosinophils % 8.6 % (0-4.5) H 10/27/18 12:32 Basophils % 0.6 % (0-2.0) 10/27/18 12:32 Nucleated RBC % 0 % (0-0) 10/27/18 12:32 CMP Sodium 141 mmol/L (136-145) 10/27/18 12:32 Potassium 4.2 mmol/L (3.5-5.1) 10/27/18 12:32 Chloride 106 mmol/L (98-107) 10/27/18 12:32 Carbon Dioxide 30 mmol/L (21-32) 10/27/18 12:32 Anion Gap 5 MMOL/L (8-16) L 10/27/18 12:32 BUN 13.3 mg/dL (7-18) 10/27/18 12:32 Creatinine 0.9 mg/dL (0.55-1.3) 10/27/18 12:32 Est GFR (CKD-EPI)AfAm 103.51 10/27/18 12:32 Est GFR (CKD-EPI)NonAf 89.31 10/27/18 12:32 Random Glucose 99 mg/dL (74-106) 10/27/18 12:32 Calcium 8.7 mg/dL (8.5-10.1) 10/27/18 12:32 Magnesium 2.4 mg/dL (1.8-2.4) 10/27/18 12:32 Total Bilirubin 0.6 mg/dL (0.2-1) 10/27/18 12:32 AST 16 U/L (15-37) 10/27/18 12:32 ALT 39 U/L (13-61) 10/27/18 12:32 Alkaline Phosphatase 83 U/L (45-117) 10/27/18 12:32 Troponin I < 0.02 ng/ml (0.00-0.05) 10/27/18 12:32 Total Protein 7.2 g/dl (6.4-8.2) 10/27/18 12:32 Albumin 3.6 g/dl (3.4-5.0) 10/27/18 12:32 Urine Test Results Urine Color Yellow 10/27/18 12:32 Urine Appearance Clear 10/27/18 12:32 Urine pH 6.5 (5.0-8.0) 10/27/18 12:32 Ur Specific Adams 1.018 (1.010-1.035) 10/27/18 12:32 Urine Protein Negative (NEGATIVE) 10/27/18 12:32 Urine Glucose (UA) Negative (NEGATIVE) 10/27/18 12:32 Urine Ketones Negative (NEGATIVE) 10/27/18 12:32 Urine Blood Negative (NEGATIVE) 10/27/18 12:32 Urine Nitrite Negative (NEGATIVE) 10/27/18 12:32 Urine Bilirubin Negative (NEGATIVE) 10/27/18 12:32 Ur Leukocyte Esterase Negative (NEGATIVE) 10/27/18 12:32 Negative for leukocytosis Negative for anemia Negative for electrolyte abnormalities Negative for transaminitis Troponin undetectable UA negative for UTI Pending CXR. 10/27/18 16:03 CXR by my and Dr. Jo (EM Attending) read: no infiltrate, no cardiomegaly, no pulmonary vascular congestion. -Pending official report Pt discharged with instruction for PCP follow up. 10/28/18 10:21 Follow up: Official CXR report: Name: HARI SALDANAUEL DEPARTMENT OF RADIOLOGY Phys: Ministerio Gillian RESIDENT : 1955 Age: 63 Sex: M [facility] Acct : [id number] Loc: [address] Exam Date: 10/27/18 Status: DEP [place] [id number] Unit Number: [id number] EXAM#: TYPE/EXAM: RESULT: [id number] RAD/CHEST PA LAT Reason for the study. Generalized weakness productive cough. Lungs clear. Chest. 2 Views of the chest. Comparison study. May 31, 2018. Findings Unremarkable contour of the cardiomediastinal silhouette. Midline trachea, no evidence of widening of the superior mediastinum. Lungs cervantes appear clear, without evidence of infiltrate , atelectasis. Pulmonary vasculature is normal. No evidence of pleural effusion , or pneumothorax. No evidence of bulky hilar adenopathy. Visualized bony structures appear intact. IMPRESSION: No evidence of active pulmonary disease. Reported By: Dipesh Bell MD 10/28/18 0814 *DC/Admit/Observation/Transfer Diagnosis at time of Disposition: Generalized weakness - Discharge Dispostion Disposition: HOME Condition at time of disposition: Improved Decision to Admit order: No - Referrals Referrals: Luci Byrne MD [Primary Care Provider] - - Patient Instructions Additional Instructions: Your lab work was normal. Your X-ray was normal. Your EKG was normal. Follow up with your primary care doctor within 3 days. Your care is not complete until you follow up. Bring all paperwork given to you today to your appointment. Take Tylenol over the counter for your pain. Take as advised on label. Return to the Emergency Department for fever, shortness of breath, vomiting, chest pain, lightheadedness, or any other new, worsening or concerning symptoms. Tu trabajo de laboratorio fue normal. Tu radiografa era normal. Tu electrocardiograma fue normal. Lesley un seguimiento con torres mdico de atencin primaria dentro de los 3 witt. Torres atencin no estar completa hasta que realice el seguimiento. Traiga todos los documentos que le entregaron hoy a torres jose. [place] Tylenol sin receta mdica para el dolor. Tmelo hien se indica en la etiqueta. Regrese al departamento de emergencias por fiebre, dificultad para respirar, vmitos, dolor en el pecho, aturdimiento o cualquier otro sntoma nuevo, que empeore o se relacione. - Post Discharge Activity Forms/Work/School Notes: Back to Work
[2018-10-27] MEDS ORDERED: ACETAMINOPHEN 325 MG TABLET (FP) PO ONE (12:07)
[2018-10-27] MEDS ORDERED: SODIUM CHLORIDE 1,000 ML IV STA (12:07)
[2018-10-27] MEDS ORDERED: ACETAMINOPHEN 325 MG TABLET (FP) ONE (12:20)
[2018-10-27 12:44] LABS: BASO % 0.6 % (0-2.0); EOS % 8.6 % (0-4.5); HEMATOCRIT 41.3 % (35.4-49); HEMOGLOBIN 14.4 GM/dL (11.7-16.9); MCH 30.7 pg (25.7-33.7); MCHC 34.8 g/dl (32.0-35.9); MEAN CELL VOLUME 88.1 fl (80-96); MEAN PLT VOLUME 8.3 fl (7.5-11.1); MONO % 6.4 % (3.8-10.2); NEUT % 47.4 % (42.8-82.8); PLATELET COUNT 203 K/MM3 (134-434); RBC 4.69 M/mm3 (4.00-5.60); WHITE BLOOD COUNT 6.1 K/mm3 (4.0-10.0)
[2018-10-27 12:49] LABS: PH,URINE 6.5 (5.0-8.0); URINE APPEARANCE CLEAR; URINE BILIRUBIN NEGATIVE (NEGATIVE); URINE COLOR YELLOW; URINE GLUCOSE (UA) NEGATIVE (NEGATIVE); URINE KETONE NEGATIVE (NEGATIVE); URINE LEUK ESTERASE NEGATIVE (NEGATIVE); URINE NITRITE NEGATIVE (NEGATIVE); URINE PROTEIN NEGATIVE (NEGATIVE); URINE UROBILINOGEN 0.2 mg/dL (0.2-1.0)
[2018-10-27 12:57] LABS: INR 1.01 (0.83-1.09); PROTHROMBIN TIME (PATIENT) 11.9 SEC (9.7-13.0)
[2018-10-27 13:09] LABS: ALBUMIN 3.6 g/dl (3.4-5.0); BILIRUBIN,TOTAL 0.6 mg/dL (0.2-1); BLOOD UREA NITROGEN 13.3 mg/dL (7-18); CALCIUM 8.7 mg/dL (8.5-10.1); CREATININE 0.9 mg/dL (0.55-1.3); POTASSIUM 4.2 mmol/L (3.5-5.1); TOT PROT 7.2 g/dl (6.4-8.2)
[2018-10-27 13:11] LABS: MAGNESIUM 2.4 mg/dL (1.8-2.4)
--- NOTE | 2018-10-27 14:49 | PDOC ---
Documentation entered by Karolina Steele SCRIBE, acting as scribe for Mely Jo MD. Mely Jo MD: This documentation has been prepared by the Ivette zamora Adrianna, SCRIBE, under my direction and personally reviewed by me in its entirety. I confirm that the documentation accurately reflects all work, treatment, procedures, and medical decision making performed by me. Attending Attestation - Resident Resident Name: Ministerio,Gillian - HPI HPI: The patient is a 63 year old male, with a significant PMH of NIDDM, HTN, vertigo , and BPH, who presents to the ED for evaluation of generalized weakness for 2 days. He reports associated productive cough of white sputum, and elevated blood pressure this morning at 101/62. Patient denies taking any of his daily medications today. Denies fever, chills, headache, chest pain, SOB, nausea, vomit, diarrhea, urinary symptoms, Allergies: Anesthetics- Amide Type, Anesthetics- Roxy Type- Parabens Surgical History: Appendectomy Social History: Denies EtOH, tobacco, or illicit drug use PCP: Dr. Luci Byrne - Physicial Exam PE: GENERAL: Awake, alert, and fully oriented, in no acute distress HEAD: No signs of trauma EYES: PERRLA, EOMI, sclera anicteric, conjunctiva clear ENT: Auricles normal inspection, hearing grossly normal, nares patent, oropharynx clear without exudates. Moist mucosa NECK: Normal ROM, supple, no lymphadenopathy, JVD, or masses LUNGS: Breath sounds equal, clear to auscultation bilaterally. No wheezes, and no crackles HEART: Regular rate and rhythm, normal S1 and S2, no murmurs, rubs or gallops ABDOMEN: Soft, nontender, normoactive bowel sounds. No guarding, no rebound. No masses EXTREMITIES: Normal range of motion, no edema. No clubbing or cyanosis. No cords, erythema, or tenderness NEUROLOGICAL: Cranial nerves II through XII grossly intact. Normal speech, normal gait SKIN: Warm, Dry, normal turgor, no rashes or lesions noted. - Medical Decision Making 10/27/18 14:44 Pt presents to the ED complaining of generalized weakness yesterday, along with non productive cough. Now feels improved. Labs checked to rule out severe sepsis or electrolyte disturbance, and are negative. Will check CXR to evaluate for PNA, likely discharge home if negative.
--- NOTE | 2018-10-28 16:16 | EKG ---
Test Reason : Blood Pressure : / mmHG Vent. Rate : 055 BPM Atrial Rate : 055 BPM P-R Int : 150 ms QRS Dur : 080 ms QT Int : 430 ms P-R-T Axes : 055 043 039 degrees QTc Int : 411 ms SINUS BRADYCARDIA OTHERWISE NORMAL ECG WHEN COMPARED WITH ECG OF 31-MAY-2018 20:26, NO SIGNIFICANT CHANGE WAS FOUND Confirmed by MD VINI, LEANNE ([id number]) on 10/28/2018 4:16:13 PM Referred By: Confirmed By:LEANNE MARTINI MD
== END 2018-10-27 16:12 | disposition home or self-care (01) ==
LOC: JER 10:51
PROC: 3E0337Z Introduction of Electrolytic and Water Balance Substance into Peripheral Vein, Percutaneous Approach (ICD-10-PCS; principal; 2018-10-27)
DX: R53.1 Weakness (principal); I10 Essential (primary) hypertension; E11.9 Type 2 diabetes mellitus without complications; N40.0 Benign prostatic hyperplasia without lower urinary tract symptoms; Z85.46 Personal history of malignant neoplasm of prostate
CPT/HCPCS: 36415; 71046-TC-FY; 80053; 81003; 83735; 84484; 85025; 85610; 85730; 87086; 93005; 93010; 96360; 99284-25; J7030

== ENCOUNTER 2019-02-25 11:30 | Emergency (ER) | payer MEDICARE, OTHER ==
[2019-02-25 11:50] VITALS: PULSE 63; BMI 28.2
[2019-02-25 13:13] LABS: BASO % 0.3 % (0-2.0); EOS % 10.4 % (0-4.5); HEMATOCRIT 43.3 % (35.4-49); HEMOGLOBIN 14.9 GM/dL (11.7-16.9); LYMPH % 42.7 % (8-40); MCH 30.1 pg (25.7-33.7); MCHC 34.4 g/dl (32.0-35.9); MEAN CELL VOLUME 87.5 fl (80-96); MONO % 6.9 % (3.8-10.2); NEUT % 39.7 % (42.8-82.8); PLATELET COUNT 207 K/MM3 (134-434); RBC 4.95 M/mm3 (4.00-5.60); RDW 13.6 % (11.9-15.9); WHITE BLOOD COUNT 5.1 K/mm3 (4.0-10.0)
[2019-02-25 13:35] LABS: ALBUMIN 3.9 g/dl (3.4-5.0); ALK PHOS 84 U/L (45-117); ANION GAP 5 MMOL/L (8-16); BILIRUBIN,TOTAL 0.6 mg/dL (0.2-1); CALCIUM 9.2 mg/dL (8.5-10.1); CHLORIDE 106 mmol/L (98-107); CO2 30 mmol/L (21-32); CREATININE 0.9 mg/dL (0.55-1.3); GLUCOSE,RANDOM 103 mg/dL (74-106); LIPASE 134 U/L (73-393); POTASSIUM 3.9 mmol/L (3.5-5.1); SGOT/AST 26 U/L (15-37); SGPT/ALT 68 U/L (13-61); SODIUM 141 mmol/L (136-145); TOT PROT 7.9 g/dl (6.4-8.2)
[2019-02-25] MEDS ORDERED: MECLIZINE HCL 25 MG TABLET (FP) PO ONE (13:59)
[2019-02-25] MEDS ORDERED: ACETAMINOPHEN 1000 MG/100 ML VIAL (NON FORMULARY) IVPB ONE (13:59)
[2019-02-25] MEDS ORDERED: METOCLOPRAMIDE HCL INJECTION 10 MG/2 ML VIAL IVPUSH ONE (13:59)
[2019-02-25] MEDS ORDERED: SODIUM CHLORIDE 1,000 ML IV STA (13:59)
[2019-02-25 14:08] LABS: INR 1.12 (0.83-1.09); PROTHROMBIN TIME (PATIENT) 13.2 SEC (9.7-13.0)
[2019-02-25] MEDS ORDERED: METOCLOPRAMIDE HCL INJECTION 10 MG/2 ML VIAL ONE (14:23)
[2019-02-25] MEDS ORDERED: MECLIZINE HCL 25 MG TABLET (FP) ONE (14:23)
[2019-02-25] MEDS ORDERED: ACETAMINOPHEN INJECTION 100 ML IVPB ONE (14:24)
--- NOTE | 2019-02-25 14:26 | PDOC ---
History of Present Illness - General Chief Complaint: Lightheaded Stated Complaint: DIZZY/LWR ABD PAIN Time Seen by Provider: 02/25/19 13:23 - History of Present Illness Initial Comments: 02/25/19 15:20 HPI: 63 y/o M with hx of NIDDM, HTN, vertigo, prostate cancer (s/p resection x1 year ago and penile surgery 1 month ago) presenting with 4-5 days of dizziness. He states it feels like the room is spinning and has been constant recently. Symptoms are worse with lying down and when turning his head. He attempted a medicine at home which his PCP prescribed but he doesnt recall the name. He reports hx of vertigo but hasnt required any meds for 3 months. He also reports SALGADO in BL frontal and temples. It is intermittent and not that strong and improves with tylenol, motrin, or fioricet. He denies any falls, syncope, head trauma, seizure, n/v, chest pain, SOB, dysuria weakness. He reports mild abd discomfort from his recent surgery that is otherwise controlled with meds PMHx: as noted above ROS: as noted SHx: Denies tobacco use; no alcohol use; no rec drugs Allergies: NKDA ROS: GENERAL/CONSTITUTIONAL: No fever or chills. No weakness. HEAD, EYES, EARS, NOSE AND THROAT: No change in vision. No ear pain or discharge. No sore throat. CARDIOVASCULAR: No chest pain or shortness of breath RESPIRATORY: No cough, wheezing, or hemoptysis. GASTROINTESTINAL: No nausea, vomiting, diarrhea or constipation. GENITOURINARY: No dysuria, frequency, or change in urination. MUSCULOSKELETAL: No joint or muscle swelling or pain. No neck or back pain. SKIN: No rash NEUROLOGIC: +headache, vertigo; no loss of consciousness, or change in strength/ sensation. ENDOCRINE: No increased thirst. No abnormal weight change HEMATOLOGIC/LYMPHATIC: No anemia, easy bleeding, or history of blood clots. ALLERGIC/IMMUNOLOGIC: No hives or skin allergy. PE: GENERAL: Awake, alert, and fully oriented, no acute distress HEAD: No signs of trauma, normocephalic, atraumatic EYES: EOMI, sclera anicteric, conjunctiva clear ENT: Auricles normal inspection, hearing grossly normal, nares patent, oropharynx clear without exudates. Moist mucosa NECK: Normal ROM, no lymphadenopathy LUNGS: No increased work of breathing, symmetrical chest rise, clear to auscultation bilaterally, no wheezes, crackles or rhonchi HEART: Regular rate and rhythm, normal S1 and S2, no murmurs, peripheral pulses 2+ and equal bilaterally. ABDOMEN: Soft, nondistended, nontender, normoactive bowel sounds. No guarding, no rebound. No masses. No CVAT MUSCULOSKELETAL: Normal inspection, FROM NEUROLOGICAL: Cranial nerves II through XII grossly intact. Normal speech, normal gait, no focal sensorimotor deficits, no ataxia on FTN and HTS, negative lenin hallpike SKIN: Warm, Dry, normal turgor, no rashes or lesions noted Past History - Past Medical History Allergies/Adverse Reactions: Allergies Allergy/AdvReac Type Severity Reaction Status Date / Time Anesthetics - Amide Type Allergy Verified 02/25/19 11:46 Anesthetics - Roxy Type- Allergy Verified 02/25/19 11:46 Parabens Home Medications: Ambulatory Orders Valsartan [Diovan] 40 mg PO DAILY 05/04/17 Levothyroxine [Synthroid -] 100 mcg PO DAILY 01/11/18 Meclizine HCl 25 mg PO BID PRN #30 tablet 05/31/18 Clindamycin [Cleocin -] 300 mg PO TID #21 capsule 09/15/18 Meclizine HCl [Antivert -] 25 mg PO BID PRN #30 tablet 02/25/19 Cancer: Yes (prostate) COPD: No HTN: Yes Thyroid Disease: Yes - Surgical History Appendectomy: Yes - Immunization History Immunization Up to Date: Yes - Psycho Social/Smoking Cessation Hx Smoking History: Never smoked Information on smoking cessation initiated: No Hx Alcohol Use: No Drug/Substance Use Hx: No *Physical Exam - Vital Signs Last Vital Signs Temp Pulse Resp BP Pulse Ox 98.5 F 63 17 112/76 98 02/25/19 11:47 02/25/19 11:47 02/25/19 11:47 02/25/19 11:47 02/25/19 11:47 ED Treatment Course - LABORATORY CBC & Chemistry Diagram: 02/25/19 12:56 02/25/19 12:56 - ADDITIONAL ORDERS Additional order review: Laboratory Results 02/25/19 02/25/19 12 12:56 12:56 12:56 WBC 5.1 RBC 4.95 Hgb 14.9 Hct 43.3 MCV 87.5 MCH 30.1 MCHC 34.4 RDW 13.6 Plt Count 207 MPV 9.0 Absolute Neuts (auto) 2.0 Neutrophils % 39.7 L Lymphocytes % 42.7 H Monocytes % 6.9 Eosinophils % 10.4 H Basophils % 0.3 Nucleated RBC % 0 PT with INR 13.20 H INR 1.12 H Sodium 141 Potassium 3.9 Chloride 106 Carbon Dioxide 30 Anion Gap 5 L BUN 15.0 Creatinine 0.9 Est GFR (CKD-EPI)AfAm 103.51 Est GFR (CKD-EPI)NonAf 89.31 Random Glucose 103 Calcium 9.2 Total Bilirubin 0.6 AST 26 ALT 68 H Alkaline Phosphatase 84 Creatine Kinase 53 Troponin I < 0.02 Total Protein 7.9 Albumin 3.9 Total Amylase Lipase 134 02/25/19 12:56 WBC RBC Hgb Hct MCV MCH MCHC RDW Plt Count MPV Absolute Neuts (auto) Neutrophils % Lymphocytes % Monocytes % Eosinophils % Basophils % Nucleated RBC % PT with INR INR Sodium Potassium Chloride Carbon Dioxide Anion Gap BUN Creatinine Est GFR (CKD-EPI)AfAm Est GFR (CKD-EPI)NonAf Random Glucose Calcium Total Bilirubin AST ALT Alkaline Phosphatase Creatine Kinase Troponin I Total Protein Albumin Total Amylase 64 Lipase 02/25/19 12:56 RBC 4.95 MCV 87.5 MCHC 34.4 RDW 13.6 MPV 9.0 Neutrophils % 39.7 L Lymphocytes % 42.7 H Monocytes % 6.9 Eosinophils % 10.4 H Basophils % 0.3 - RADIOLOGY Radiology Studies Ordered: Category Date Time Status HEAD CT WITHOUT CONTRAST [CT] Stat CT Scan 02/25/19 14:07 Ordered Medical Decision Making - Medical Decision Making 02/25/19 15:39 63 y/o M with hx of NIDDM, HTN, vertigo, prostate cancer (s/p resection x1 year ago and penile surgery 1 month ago) presenting with 4-5 days of vertiginous symptoms. VSS, AF. Pe unremarkable with no neuro deficits, normal giat, 5/5 str , sensation intact, negative lenin halpike, no nystagmus. -CT head to ruleout bleed -ekg, trop, cbc, cmp, lipase, mg, phos -ivf, reglan, benadryl, ofirmev, meclizine 02/25/19 16:38 CT negative labs wnl EKG: nsr, nl intervals, nonspecific ST segment abnormality with no previous EKGs Patient reassessed and states symptoms significantly improved; patient ambulating without assist and feels comfortable going home Discussed meds and followup necessary Discharge - Discharge Information Problems reviewed: Yes Clinical Impression/Diagnosis: Dizziness Headache Qualifiers: Headache type: unspecified Headache chronicity pattern: acute headache Intractability: not intractable Qualified Code(s): R51 - Headache Condition: Improved Disposition: HOME - Additional Discharge Information Prescriptions: Meclizine HCl [Antivert -] 25 mg PO BID PRN #30 tablet PRN Reason: Vertigo - Follow up/Referral Referrals: Luci Byrne MD [Primary Care Provider] - - Patient Discharge Instructions Patient Printed Discharge Instructions: DI for Vertigo Additional Instructions: Additional Instructions: Please return to the emergency department with any new or worsening symptoms or concerns including worsening headache, fainting, persistent vomiting, inability to walk. Please follow up with your primary care physician within 72 hours for re- evaluation Please take meclizine 25mg twice a day as needed for symptoms. You may take tylenol 650mg every 6 hours as needed for pain control or headache Instrucciones adicionales: Regrese al departamento de emergencias con cualquier sntoma o inquietud nueva o que empeore, incluyendo dolor de unique que empeora, desmayos, vmitos persistentes, incapacidad para caminar. Lesley un seguimiento con rainey mdico de atencin primaria dentro de las 72 horas para la reevaluacin [place] meclizina 25 mg dos veces al da segn sea necesario para los sntomas. Puede bernard tylenol 650 mg cada 6 horas segn sea necesario para controlar el dolor o el dolor de unique Print Language: BHUTANESE - Post Discharge Activity
--- NOTE | 2019-02-25 15:12 | PDOC ---
Documentation entered by Tri Wood SCRIBE, acting as scribe for Hanane Dillon MD. Hanane Dillon MD: This documentation has been prepared by the Nina zamora Xhesika, SCRIBE, under my direction and personally reviewed by me in its entirety. I confirm that the documentation accurately reflects all work, treatment, procedures, and medical decision making performed by me. Attending Attestation - Resident Resident Name: Delmer Kothari - ED Attending Attestation I have performed the following: I have examined & evaluated the patient, The case was reviewed & discussed with the resident, I agree w/resident's findings & plan, Exceptions are as noted - HPI HPI: 02/25/19 14:16 The patient is a 63 year old male with a past medical history of HTN, vertigo, prostate cancer (surgery 3 months ago), hypothyroidism, and left shoulder surgery (05/28/18) who presents to the ED for 1 month of frontal headache and room spinning dizziness. Pt notes his dizziness is positional, worsened when looking down or to the sides. Pt endorses lower abdominal pain at the incision site associated with difficulty laying down. Patient notes his symptoms are similar to his previous vertigo. Patient denies focal weakness/numbness. The patient denies chest pain, shortness of breath, Denies fever, chills, cough, nausea, vomiting, diarrhea and constipation. Denies dysuria, frequency, urgency and hematuria. Allergies: Anesthetics- Amide Type, Anesthetics- Roxy Type- Parabens Surgical History: Appendectomy Social History: Denies EtOH, tobacco, or illicit drug use PCP: Dr. Luci Byrne - Physicial Exam PE: 02/25/19 15:05 Patient examined after receiving analgesia GENERAL: The patient is in no acute distress, seated in chair. ENT: Ears normal, nares patent, oropharynx clear without exudates. Moist mucous membranes. NECK: Normal range of motion, supple LUNGS: Breath sounds equal, clear to auscultation bilaterally. No wheezes, and no crackles. HEART: Regular rate and rhythm, normal S1 and S2 without murmur, rub or gallop. ABDOMEN: Soft, nontender, normoactive bowel sounds. EXTREMITIES: Normal range of motion, no edema. NEUROLOGICAL: No nystagmus, Cranial nerves II through XII grossly intact. Normal speech. No focal neurological deficits. SKIN: Warm, Dry, normal turgor, no rashes or lesions noted. - Medical Decision Making 02/25/19 15:09 63 yo M presenting with vertigo, headache Pt has had similar presentations in the pas Pt presents to the ER with chronic headache and vertigo No head trauma No fevers or chills Likely vertigo Less likely labrynthitis, meniere's diease or posterior CVA Headache has been present for the past week No head trauma, no fevers, no nuchal rigidity Will do: Labs CT head Re assess 02/25/19 15:11 Currently H/A is 4/10 Pt got Reglan and feels restless Will order Benadryl Pending CT 02/25/19 16:50 02/25/19 16:50 Laboratory Tests 02/25/19 02/25/19 12:56 12:56 Hgb 14.9 Hct 43.3 BUN 15.0 Creatinine 0.9 Creatine Kinase 53 Troponin I < 0.02 PT states he feels much better Will plan to discharge to home Follow up
--- NOTE | 2019-02-25 15:14 | EKG ---
Test Reason : Blood Pressure : / mmHG Vent. Rate : 057 BPM Atrial Rate : 057 BPM P-R Int : 152 ms QRS Dur : 078 ms QT Int : 410 ms P-R-T Axes : 052 035 033 degrees QTc Int : 399 ms SINUS BRADYCARDIA NONSPECIFIC ST ABNORMALITY ABNORMAL ECG WHEN COMPARED WITH ECG OF 27-OCT-2018 14:47, ST NOW DEPRESSED IN ANTERIOR LEADS Confirmed by NICK CHI MD ([id number]) on 02/25/2019 3:13:44 PM Referred By: Confirmed By:NICK CHI MD
[2019-02-25 16:47] VITALS: BP 110/61; TEMP 98
== END 2019-02-25 16:52 | disposition home or self-care (01) ==
LOC: JER 11:30
PROC: 3E033NZ Introduction of Analgesics, Hypnotics, Sedatives into Peripheral Vein, Percutaneous Approach (ICD-10-PCS; principal; 2019-02-25)
PROC: 3E033GC Introduction of Other Therapeutic Substance into Peripheral Vein, Percutaneous Approach (ICD-10-PCS; 2019-02-25)
PROC: 3E033GC Introduction of Other Therapeutic Substance into Peripheral Vein, Percutaneous Approach (ICD-10-PCS; 2019-02-25)
DX: R42 Dizziness and giddiness (principal); R51 Headache; I10 Essential (primary) hypertension; E11.9 Type 2 diabetes mellitus without complications; Z79.84 Long term (current) use of oral hypoglycemic drugs; Z85.46 Personal history of malignant neoplasm of prostate; Z88.4 Allergy status to anesthetic agent
CPT/HCPCS: 36415; 70450-TC; 80053; 82150; 82550; 83690; 84484; 85025; 85610; 86850; 86900; 86901; 93005; 93010; 99284-25; J0131; J7030

== ENCOUNTER 2019-05-13 10:55 | Emergency (ER) | payer MEDICARE, OTHER ==
[2019-05-13 11:03] VITALS: BMI 28.2
[2019-05-13 12:29] LABS: BASO % 0.5 % (0-2.0); EOS % 17.5 % (0-4.5); HEMOGLOBIN 14.5 GM/dL (11.7-16.9); LYMPH % 39.3 % (8-40); MCHC 34.5 g/dl (32.0-35.9); MEAN CELL VOLUME 87.1 fl (80-96); MEAN PLT VOLUME 8.8 fl (7.5-11.1); MONO % 7.2 % (3.8-10.2); NEUT % 35.5 % (42.8-82.8); PLATELET COUNT 210 K/MM3 (134-434); RBC 4.83 M/mm3 (4.00-5.60); RDW 14.3 % (11.9-15.9); WHITE BLOOD COUNT 5.7 K/mm3 (4.0-10.0)
[2019-05-13 12:41] LABS: INR 1.03 (0.83-1.09); PROTHROMBIN TIME (PATIENT) 12.1 SEC (9.7-13.0)
[2019-05-13 13:24] LABS: ALBUMIN 3.7 g/dl (3.4-5.0); BILIRUBIN,TOTAL 0.6 mg/dL (0.2-1); BLOOD UREA NITROGEN 13.1 mg/dL (7-18); CALCIUM 8.7 mg/dL (8.5-10.1); POTASSIUM 4.6 mmol/L (3.5-5.1); TOT PROT 7.7 g/dl (6.4-8.2)
[2019-05-13 15:51] LABS: BASO % 0.4 % (0-2.0); EOS % 15.8 % (0-4.5); HEMATOCRIT 43.6 % (35.4-49); HEMOGLOBIN 14.9 GM/dL (11.7-16.9); LYMPH % 39.7 % (8-40); MCH 29.9 pg (25.7-33.7); MCHC 34.1 g/dl (32.0-35.9); MEAN CELL VOLUME 87.7 fl (80-96); MEAN PLT VOLUME 9.2 fl (7.5-11.1); MONO % 5.2 % (3.8-10.2); NEUT % 38.9 % (42.8-82.8); PLATELET COUNT 224 K/MM3 (134-434); RBC 4.97 M/mm3 (4.00-5.60); RDW 14.3 % (11.9-15.9); WHITE BLOOD COUNT 5.6 K/mm3 (4.0-10.0)
--- NOTE | 2019-05-13 16:10 | PDOC ---
Documentation entered by Karolina Steele SCRIBE, acting as scribe for Benson Soto MD. Benson Soto MD: This documentation has been prepared by the Ivette zamora Adrianna, SCRIBE, under my direction and personally reviewed by me in its entirety. I confirm that the documentation accurately reflects all work, treatment, procedures, and medical decision making performed by me. History of Present Illness - General Chief Complaint: Rectal Bleed Stated Complaint: SORE BACK Time Seen by Provider: 05/13/19 11:46 - History of Present Illness Initial Comments: The patient is a 63 year old male, with a significant PMH of pre-DM, HTN, vertigo, prostate cancer (s/p resection x1 year ago and seed implantation surgery 4 months ago) presenting with rectal bleeding, shoulder and low back pain for 3 days. Patient notes he developed dark red blood mixed into his stool 3 days ago. He reports some associated diffuse lower abdominal pain. His last colonoscopy was 3 years ago and was normal at that time. Patient additionally complains of bilateral posterior shoulder pain and low back pain. He reports falling forward 4 days ago after trying to pick remover a heavy case of water. Denies any LOC or head contusion at that time. Allergies: Amide and Roxy Anesthetics Surgical History: appendectomy, prostate CA resection and seed implantation Social History: No toxic habits PCP: Dr. Byrne Past History - Past Medical History Allergies/Adverse Reactions: Allergies Allergy/AdvReac Type Severity Reaction Status Date / Time Anesthetics - Amide Type Allergy Verified 05/13/19 11:03 Anesthetics - Orxy Type- Allergy Verified 05/13/19 11:03 Parabens Home Medications: Ambulatory Orders Valsartan [Diovan] 40 mg PO DAILY 05/04/17 Levothyroxine [Synthroid -] 100 mcg PO DAILY 01/11/18 Cyclobenzaprine HCl [Flexeril -] 10 mg PO BID #10 tablet 05/13/19 Metformin HCl [Glucophage] 500 mg PO DAILY 05/13/19 Pravastatin Sodium [Pravachol (Nf)] 40 mg PO HS 05/13/19 Cancer: Yes (prostate) COPD: No HTN: Yes Thyroid Disease: Yes - Surgical History Appendectomy: Yes - Immunization History Immunization Up to Date: Yes - Psycho Social/Smoking Cessation Hx Smoking History: Never smoked Have you smoked in the past 12 months: No Information on smoking cessation initiated: No Hx Alcohol Use: No Drug/Substance Use Hx: No Review of Systems - Review of Systems Comments:: CONSTITUTIONAL: No fever, no chills, no fatigue EYES: No visual changes ENT: No ear pain, no sore throat CARDIOVASCULAR: No chest pain, no palpitations RESPIRATORY: No cough, no SOB GI: +Dark red blood mixed into stool. +Diffuse lower abdominal pain. No nausea, no vomiting, no constipation, no diarrhea GENITOURINARY: No dysuria, no frequency, no hematuria MUSKULOSKELETAL: +Bilateral shoulder pain. +Low back pain. No myalgias SKIN: No rash NEURO: No headache *Physical Exam - Vital Signs Last Vital Signs Temp Pulse Resp BP Pulse Ox 97.6 F 57 L 18 135/85 97 05/13/19 10:57 05/13/19 10:57 05/13/19 10:57 05/13/19 10:57 05/13/19 10:57 - Physical Exam 05/13/19 16:06 EXAMINATION CONSTITUTIONAL: Well-appearing; well-nourished; in no apparent distress HEAD: Normocephalic; atraumatic EYES: PERRL; EOM intact ENMT: External appears normal; normal oropharynx NECK: Supple; non-tender; no cervical lymphadenopathy CARD: Normal S1, S2; no murmurs, rubs, or gallops RESP: Normal chest excursion with respiration; breath sounds clear and equal bilaterally; no wheezes, rhonchi, or rales FL: No external lesions, light brown stool in the rectal vault, ABD: Soft, non-distended; non-tender; no palpable organomegaly, no palpable hernias EXT: Normal ROM in all four extremities; non-tender to palpation; distal pulses intact BACK: No obvious deformity, no midline tenderness to palpation, mild paraspinal tenderness in the midthoracic region; SKIN: Warm, dry, no rash NEURO: No focal neurological deficiencies. ED Treatment Course - LABORATORY CBC & Chemistry Diagram: 05/13/19 15:07 05/13/19 12:15 - ADDITIONAL ORDERS Additional order review: Laboratory Results 05/13/19 05/13/19 05/13/19 12:15 12:15 12:15 PT with INR 12.10 INR 1.03 Sodium 138 Potassium 4.6 Chloride 106 Carbon Dioxide 28 Anion Gap 4 L BUN 13.1 Creatinine 1.0 Est GFR (CKD-EPI)AfAm 91.13 Est GFR (CKD-EPI)NonAf 78.63 Random Glucose 101 Calcium 8.7 Total Bilirubin 0.6 AST 33 ALT 32 Alkaline Phosphatase 77 Total Protein 7.7 Albumin 3.7 Stool Occult Blood Blood Type O POSITIVE Antibody Screen Negative 05/13/19 12:05 PT with INR INR Sodium Potassium Chloride Carbon Dioxide Anion Gap BUN Creatinine Est GFR (CKD-EPI)AfAm Est GFR (CKD-EPI)NonAf Random Glucose Calcium Total Bilirubin AST ALT Alkaline Phosphatase Total Protein Albumin Stool Occult Blood Negative Blood Type Antibody Screen 05/13/19 05/13/19 15:07 12:15 RBC 4.97 4.83 MCV 87.7 87.1 MCHC 34.1 34.5 RDW 14.3 14.3 MPV 9.2 8.8 Neutrophils % 38.9 L 35.5 L Lymphocytes % 39.7 39.3 Monocytes % 5.2 7.2 Eosinophils % 15.8 H 17.5 H Basophils % 0.4 0.5 Medical Decision Making - Medical Decision Making 05/13/19 16:07 Patient 63-year-old male who presents with mild paraspinal back pain as well as 3 days of rectal bleeding. In the ER, patient is awake and alert, vital signs are noted. Serial abdominal exams reveal no focal tenderness. Rectal exam reveals light brown stool in the vault without evidence of active bleeding. Stool guaiac is negative. Serial hematocrits reveal no evidence of significant drop. Patient is safe for discharge with outpatient GI follow-up. Discharge - Discharge Information Problems reviewed: Yes Clinical Impression/Diagnosis: Rectal bleeding, Upper back pain Condition: Stable Disposition: HOME - Follow up/Referral Referrals: Luci Byrne MD [Primary Care Provider] - - Patient Discharge Instructions Patient Printed Discharge Instructions: DI for Rectal Bleeding, DI for Thoracic Back Pain - Post Discharge Activity
[2019-05-13 16:46] VITALS: BP 138/83; PULSE 51; TEMP 98.5
== END 2019-05-13 16:47 | disposition home or self-care (01) ==
LOC: JER 10:55
DX: K62.5 Hemorrhage of anus and rectum (principal); M54.9 Dorsalgia, unspecified; R73.03 Prediabetes; I10 Essential (primary) hypertension; Z85.46 Personal history of malignant neoplasm of prostate; R42 Dizziness and giddiness; E07.9 Disorder of thyroid, unspecified
CPT/HCPCS: 36415; 80053; 82272; 85025; 85610; 86850; 86900; 86901; 99283-25

== ENCOUNTER 2020-01-29 11:03 | Emergency (ER) | payer OTHER ==
[2020-01-29 11:09] VITALS: PULSE 68; TEMP 98.1; BMI 25.8
[2020-01-29] MEDS ORDERED: MECLIZINE HCL 25 MG TABLET (FP) PO ONE (13:02)
[2020-01-29] MEDS ORDERED: ACETAMINOPHEN 1000 MG/100 ML VIAL (NON FORMULARY) IVPB ONE (13:02)
[2020-01-29] MEDS ORDERED: LACTATED RINGERS SOLUTION 1000 ML INFUS.BAG IV ONE (13:11)
[2020-01-29] MEDS ORDERED: ACETAMINOPHEN INJECTION 100 ML IVPB ONE (13:27)
[2020-01-29] MEDS ORDERED: MECLIZINE HCL 12.5 MG TABLET ONE (13:27)
[2020-01-29 13:44] LABS: BASO % 0.3 % (0-2.0); EOS % 8.3 % (0-4.5); HEMATOCRIT 45.6 % (35.4-49); HEMOGLOBIN 15.5 GM/dL (11.7-16.9); LYMPH % 44.1 % (8-40); MCH 29.5 pg (25.7-33.7); MEAN CELL VOLUME 86.8 fl (80-96); MEAN PLT VOLUME 8.9 fl (7.5-11.1); MONO % 5.9 % (3.8-10.2); NEUT % 41.4 % (42.8-82.8); PLATELET COUNT 215 K/MM3 (134-434); RBC 5.26 M/mm3 (4.00-5.60); RDW 14.1 % (11.9-15.9); WHITE BLOOD COUNT 5.3 K/mm3 (4.0-10.0)
[2020-01-29 13:54] LABS: INR 1.01 (0.83-1.09); PROTHROMBIN TIME (PATIENT) 12.2 SEC (9.7-13.0)
[2020-01-29 13:56] LABS: ACTIVATED PTT 32.2 SECONDS (25.2-36.5)
[2020-01-29 14:05] LABS: CALCIUM 8.9 mg/dL (8.5-10.1); CHLORIDE 106 mmol/L (98-107); POTASSIUM 4.1 mmol/L (3.5-5.1); SODIUM 139 mmol/L (136-145)
[2020-01-29 14:06] LABS: ALBUMIN 4.1 g/dl (3.4-5.0); ANION GAP 4 MMOL/L (8-16); BLOOD UREA NITROGEN 10.2 mg/dL (7-18); CO2 29 mmol/L (21-32); GLUCOSE,RANDOM 91 mg/dL (74-106)
[2020-01-29 14:10] LABS: SGOT/AST 20 U/L (15-37); SGPT/ALT 37 U/L (13-61)
[2020-01-29 14:11] LABS: BILIRUBIN,TOTAL 0.9 mg/dL (0.2-1); TOT PROT 8.3 g/dl (6.4-8.2)
[2020-01-29 14:12] LABS: ALK PHOS 93 U/L (45-117)
[2020-01-29 15:50] VITALS: BP 128/82
== END 2020-01-29 16:00 | disposition home or self-care (01) ==
LOC: JER 11:03
PROC: 3E0333Z Introduction of Anti-inflammatory into Peripheral Vein, Percutaneous Approach (ICD-10-PCS; principal; 2020-01-29)
DX: H81.4 Vertigo of central origin (principal)
CPT/HCPCS: 36415; 70450-TC; 80053; 84484; 85025; 85610; 85730; 93005; 93010; 99285-25; J0131

== ENCOUNTER 2020-07-11 18:32 | Emergency (ER) | payer OTHER ==
[2020-07-11 18:45] VITALS: BMI 26.6
[2020-07-11] MEDS ORDERED: ACETAMINOPHEN 500 MG TABLET (FP) PO ONE (19:11)
[2020-07-11] MEDS ORDERED: ACETAMINOPHEN 500 MG TABLET (FP) ONE (19:56)
[2020-07-11 20:49] VITALS: BP 122/73; PULSE 66; TEMP 98.8
== END 2020-07-11 20:49 | disposition home or self-care (01) ==
LOC: JER 18:32
DX: M79.10 Myalgia, unspecified site (principal); R68.83 Chills (without fever)
CPT/HCPCS: 71046-TC-FY; 87804; 99284-25; C9803; U0003; U0005

== ENCOUNTER 2021-11-30 05:36 | Day surgery (SDC) | payer OTHER ==
[2021-11-28 09:18] VITALS: BMI 26.6
[2021-11-30 07:31] VITALS: TEMP 97.6
[2021-11-30 11:15] VITALS: BP 124/88; PULSE 73; RESP 16
== END 2021-11-30 11:27 | disposition home or self-care (01) ==
LOC: JASU-ENDO 05:36
PROVIDERS: ATTEND Internal Medicine Gastroenterology
PROC: 0DBP8ZX Excision of Rectum, Via Natural or Artificial Opening Endoscopic, Diagnostic (ICD-10-PCS; principal; 2021-11-30 08:45)
DX: D12.8 Benign neoplasm of rectum (principal); K57.30 Diverticulosis of large intestine without perforation or abscess without bleeding; K64.8 Other hemorrhoids
CPT/HCPCS: 82962; 88305-TC

== ENCOUNTER 2023-02-13 06:25 | Emergency (ER) | payer OTHER ==
[2023-02-13 06:38] VITALS: BP 154/89; PULSE 68; RESP 18; TEMP 98.1; BMI 28.5
[2023-02-13] MEDS ORDERED: ACETAMINOPHEN 325 MG TABLET (FP) PO ONE (08:05)
[2023-02-13] MEDS ORDERED: ACETAMINOPHEN 325 MG TABLET (FP) ONE ×2 (08:06→08:07)
[2023-02-13] MEDS ORDERED: valACYclovir HCL 500 MG TABLET (FP) PO ONE (08:34)
[2023-02-13] MEDS ORDERED: valACYclovir HCL 500 MG TABLET (FP) ONE (08:35)
== END 2023-02-13 09:18 | disposition home or self-care (01) ==
LOC: JER 06:25
DX: R51.9 Headache, unspecified (principal); H92.02 Otalgia, left ear; B02.9 Zoster without complications
CPT/HCPCS: 99283-25